=== PATIENT | female | born 1965 | race Hispanic/Latino ===

== ENCOUNTER 2018-08-17 10:33 | Emergency (ER) | payer BC ==
[~2018-08-17] VITALS: Ht 149.9 cm; Wt 91.6 kg
[2018-08-17] MEDS ORDERED: ACETAMINOPHEN 325 MG TAB PO ONE (10:45)
--- NOTE | 2018-08-17 11:37 | Diagnostic Imaging Report ---
EXAMINATION: PA and lateral views of the chest. COMPARISON: None CLINICAL HISTORY: Chest pain, left arm numbness DISCUSSION: Lines/tubes: None. Lungs: The lungs are well inflated and clear. No pneumonia or pulmonary edema. Pleura: No pleural effusion or pneumothorax. Heart and mediastinum: The cardiomediastinal silhouette is normal. Bones and soft tissues: No acute bony abnormalities. IMPRESSION: No acute cardiopulmonary abnormalities. Signed by: Dr. Anshul Ibarra M.D. on 08/17/2018 11:34 AM
[2018-08-17 12:35] VITALS: BP 136/70
== END 2018-08-17 12:46 | disposition home or self-care (01) ==
LOC: FSED 10:33
DX: R07.89 Other chest pain (principal); M25.512 Pain in left shoulder; M79.622 Pain in left upper arm; M25.522 Pain in left elbow; M79.632 Pain in left forearm; I10 Essential (primary) hypertension
CPT/HCPCS: 71046; 80053; 81003; 82553; 84484; 85025; 85379; 93005; 99284